=== PATIENT | female | born 1935 | race Caucasian/White ===

== ENCOUNTER 2019-06-15 05:09 | Inpatient (IN) ==
--- NOTE | 2019-06-15 05:22 | PROVIDER DOCUMENTATION ---
HPI-Musculoskeletal Pain/Inj - GENERAL Chief Complaint: Fall Stated Complaint: fall Time Seen by Provider: 06/15/19 05:14 Source: patient, EMS - HX OF PRESENT ILLNESS-MUSKULOSKELTAL Nature of Presenting Problem: patient is a 84 year old white female complaning of right hip pain after falling out of bed this am. Denies LOC, neck pain, or head injury. Quality of Pain: reports: aching Severity in ED: moderate Onset/Duration: abrupt Timing: still present Any recent injury?: No Locality of Occurance: Home Similar Symptoms Previously?: No - FALL INJURY Location of Pain/Injury: reports: lower extremity (right hip) Pain Radiation: reports: no radiation Symptoms prior to fall:: reports: none Loss of Consciousness: no loss of consciousness Injury Associated Symptoms: reports: denies symptoms - HIP/PELVIS PAIN/INJURY Hip Pain Location: reports: hip (R) Context / Method of Injury: reports: direct blow, fall - LOWER EXTREMITY PAIN/INJURY Lower Extremities Pain: hip: right Review of Systems - Adult - REVIEW OF SYSTEMS - ADULT Constitutional: denies: chills, fever Eyes: reports: no symptoms reported Ears, Nose, Mouth & Throat: reports: no symptoms reported Cardiovascular: reports: no symptoms reported Respiratory: reports: no symptoms reported Gastrointestinal: reports: no symptoms reported Genitourinary: reports: no symptoms reported Musculoskeletal: reports: see HPI. denies: back pain, neck pain Integumentary: reports: no symptoms reported Neurological: reports: no symptoms reported Psychiatric: reports: no symptoms reported Endocrine: reports: no symptoms reported Hematologic/Lymphatic: reports: no symptoms reported Allergic/Immunologic: reports: no symptoms reported All Other Systems: Reviewed and Negative Past History - Adult - PAST MEDICAL HISTORY-ADULT Review of Records: reports: Old Records Reviewed, Nursing Assessment Review, Medications Reviewed, Social history reviewed & non-contributory. Major Childhood Illnesses: reports: denies history Cardiovascular: reports: CAD, HTN, hyperlipidemia, NM Respiratory: reports: denies history Gastrointestinal: reports: denies history Obstetrical/Gynecological: reports: denies history Genitourinary: reports: denies history Musculoskeletal: reports: denies history Neurological: reports: CVA Endocrine/Immune: reports: Diabetes, denies history Other Conditions: reports: denies history - PRIOR SURGERIES/PROCEDURES Surgical/Procedure History: reports: hysterectomy, CABG - IMMUNIZATION STATUS Childhood Immunizations: See Nurse Assessment Flu Vaccine: See Nurse Assessment - FAMILY HISTORY Family History: reviewed, not pertinent Physical Exam-Injury Related - Physical Exam-Injury Related Initial Vital Signs Reviewed: Yes General Appearance: alert, no apparent distress, thin Eyes: other (clear) Head, Ears, Nose, Mouth & Throat: normocephalic/atraumatic, moist mucous membranes Neck: non-tender, full range of motion, supple Respiratory: chest non-tender, lungs clear Cardiovascular: regular rate, rhythm Abdominal Exam: normal bowel sounds, non tender, soft Lymphatic: no adenopathy Back Exam: normal inspection, no CVA tenderness Extremity: tenderness (tender over right posterior hip without deformities) Integumentary: normal color, warm/dry Neurologic: grossly normal - Glascow Coma Score Best Eye Response ([place]): (4) open spontaneously Best Verbal Response ([place]): (5) oriented Best Motor Response ([place]): (6) obeys commands [place] Total: 15 Progress - PLAN OF CARE/RESULTS Progress/Plan/Lab Results: Vital Signs - 8 hr 06/15/19 05:13 06/15/19 05:21 Temperature 98.0 F Pulse Rate 58 L Respiratory Rate 18 Blood Pressure 170/56 170/56 O2 Sat by Pulse Oximetry 95 93 L Orders Category Date Time Status Saline Loc DIRECTED Care 06/15/19 06:14 Active NPO Diet 06/15/19 06:[address] PELVIS W/O CONTRAST [CT] Stat Exams 06/15/19 05:17 Taken CBC WITH ELECTRONIC DIFF [HEME] Stat Lab 06/15/19 06:14 Uncollected COMPREHENSIVE METABOLIC PANEL [CHEM] Stat Lab 06/15/19 06:14 Uncollected PROTIME WITH INR [COAG] Stat Lab 06/15/19 06:15 Uncollected PTT [COAG] Stat Lab 06/15/19 06:15 Uncollected URINALYSIS W/POSS RFLX CULT [URINALYSIS] Stat Lab 06/15/19 06:14 Uncollected Ketorolac [Toradol] Med 06/15/19 06:11 Discontinued 30 mg IV NOW ONE EKG [EKG] Stat Ther 06/15/19 06:15 Ordered - CONSULTS/PCP/HOSPITALIST Notification #1 *Consult/PCP/Hospitalist*: Dr. Call Time Discussed: 06:15 Reason/Comments: admit to hospitalist Consult Disposition: Admit #2 Consult: Dr. Wagner Time Discussed: 06:20 Reason/Comments: admit to day shift hospitalist Consult Disposition: Admit Departure - Departure Date of Disposition Decision: 06/15/19 Time of Disposition Decision: 06:20 DIAGNOSIS: Closed comminuted intertrochanteric fracture of right femur Qualifiers: Encounter type: initial encounter Qualified Code(s): S72.141A - Displaced intertrochanteric fracture of right femur, initial encounter for closed fracture Disposition: ADMITTED INPATIENT 09 Certified Medical Emergency: Emergent Condition: Stable Referrals and Follow-Ups: Jordan Herrera MD [Primary Care Provider] - - Critical Care Note This patient required my direct & personal management of CC.: No Attestation - Physician/ NUHA Attestation Patient care was provided by Advanced Practice Provider:: No The physician spent face to face time with patient:: Yes Advanced Practice Provider documentation review:: Supervising physician onsite and consulted in the evaluation and care of this patient. The physician did have a face to face encounter with the patient.
[2019-06-15] MEDS ORDERED: TORADOL IV ONE (06:11)
[2019-06-15 07:10] LABS: URINE SOURCE CATH
[2019-06-15 07:21] LABS: BASO# 0.01 X1000 (0.0-0.2); BASO% 0.1 % (0.0-0.8); EOS# 0.04 X1000 (0.0-0.7); EOS% 0.5 % (0.0-10.0); HEMATOCRIT 33.4 % (37.0-47.0); HEMOGLOBIN 10.7 g/dL (12.0-16.0); IMM GRAN# 0.03 X1000 (0.0-0.04); IMM GRAN% 0.4 % (0.0-0.5); LYMPH# 1.38 X1000 (1.2-3.4); LYMPH% 18.5 % (20.5-51.1); MCH 30.7 PG (27-31); MCV 95.7 FL (81-99); MONO# 0.44 X1000 (0.11-0.59); MONO% 5.9 % (1.7-9.3); MPV 10.1 FL (7.4-10.4); NEUT# 5.57 X1000 (1.4-6.5); NEUT% 74.6 % (42.2-75.2); PLT 239 X1000 (130-400); RBC 3.49 XMIL (4.2-5.4); RDW 12.3 % (11.5-14.5); WBC 7.47 X1000 (4.8-10.8)
[2019-06-15 07:30] LABS: BILIRUBIN URINE NEGATIVE (NEGATIVE); BLOOD URINE NEGATIVE (NEGATIVE); COLOR YELLOW; GLUCOSE URINE NEGATIVE (NEGATIVE); KETONE URINE NEGATIVE (NEGATIVE); LEUKOCYTES URINE NEGATIVE (NEGATIVE); NITRITE URINE NEGATIVE (NEGATIVE); PROTEIN URINE NEGATIVE (NEGATIVE); SP GRAVITY URINE 1.013; TURBIDITY URINE CLEAR (CLEAR); UROBILINOGEN URINE NORMAL (NORMAL)
[2019-06-15 07:31] LABS: UR EPITHELIAL CELLS <10 /HPF (<10); URINE BACTERIA NEGATIVE /HPF; URINE RBC <10 /HPF (<10); URINE WBC <10 /HPF (<10)
[2019-06-15 07:38] LABS: ALB/GLOB RATIO 1.5; ALBUMIN 3.8 g/dL (3.5-5.0); CALCIUM 9.3 mg/dL (8.8-10.2); POTASSIUM 5.3 mmol/L (3.5-5.1); TOTAL BILIRUBIN 0.2 mg/dL (0.20-1.00); TOTAL PROTEIN 6.4 g/dL (6.3-8.3)
[2019-06-15 08:31] LABS: INR 0.97
[2019-06-15 08:42] LABS: PTT 26.5 Seconds (22.3-41.8)
[2019-06-15] MEDS ORDERED: ZOFRAN IV PRN (08:47)
[2019-06-15] MEDS ORDERED: TYLENOL PO PRN (08:47)
[2019-06-15] MEDS: NS 1,000 ML IV SCH (09:20)
--- NOTE | 2019-06-15 09:37 | Diag Imaging Result Doc PS360 ---
EXAM: CT PELVIS W/O CONTRAST INDICATION: fall TECHNIQUE: This exam was performed using automated exposure control, adjustment of mA or kV according to patient size, and/or use of iterative reconstruction technique. COMPARISON: None. FINDINGS: The bones are osteopenic. There is an acute intertrochanteric fracture of the right hip with mild comminution. The lesser trochanter is avulsed and minimally displaced. There is moderate anterior apex angulation at the site of the intertrochanteric fracture. There is no hip dislocation. There are degenerative changes at both hips. There are degenerative changes at the lower lumbar spine. No other fractures are identified involving the pelvis, sacrum, or left hip. There is soft tissue edema around the right hip fracture. There is atherosclerotic calcification. Surrounding soft tissues are essentially unremarkable, otherwise. IMPRESSION: Intertrochanteric fracture of the right hip as detailed above. Electronically signed by Ezequiel Rose 06/15/2019 9:35 AM
[2019-06-15] MEDS: DEMEROL IV PRN ×2 (10:53→18:15)
--- NOTE | 2019-06-15 12:38 | Diag Imaging Result Doc PS360 ---
EXAM: XRAY HIP UNILATERAL RT INDICATION: hip fx TECHNIQUE: 2 views COMPARISON: CT pelvis dated 06/15/2019 FINDINGS: There is a known comminuted intertrochanteric right hip fracture. It appears to be unchanged as compared to the recent prior CT. No other fracture or dislocation is identified. By plain radiograph, surrounding soft tissues are essentially unremarkable. IMPRESSION: Intertrochanteric fracture of the right hip that appears grossly unchanged as compared to the recent CT. Electronically signed by Ezequiel Rose 06/15/2019 12:36 PM
--- NOTE | 2019-06-15 15:18 | HISTORY AND PHYSICAL ---
PRIMARY CARE PHYSICIAN: Dr. Jordan Herrera. CHIEF COMPLAINT: Fall with right hip pain. HISTORY OF PRESENTING ILLNESS: This is an 84-year-old female who presents to [facility] after she sustained a fall while trying to get back into her bed and complained of right hip pain. According to the daughter, the patient had gotten up out of the bed to go to the bathroom, came back, went to sit down on her bed and did not sit far enough back and missed the bed and sat in the floor and then began having right hip pain. Her CT of the pelvis per ER documentation showed a closed comminuted intertrochanteric fracture of the right femur. So she will be admitted for further evaluation and treatment. PAST MEDICAL HISTORY: Dementia, coronary artery disease, hypertension, hyperlipidemia, VA, CVA, and diabetes type 2. PAST SURGICAL HISTORY: A hysterectomy, a CABG, a right ankle fracture. FAMILY HISTORY: Reviewed and noncontributory. SOCIAL HISTORY: She lives at home with sitters. Denies any tobacco, alcohol, or illicit drug use. ALLERGIES: Morphine. HOME MEDICATIONS: Will all be held at this time due to being n.p.o. but she takes aspirin 325 mg p.o. daily, Aricept 5 mg p.o. daily, gabapentin 100 mg p.o. b.i.d., and Glucophage XR 1000 mg p.o. b.i.d. LABORATORY DATA: Showed a white blood cell count of 7.47, hemoglobin 10.7, hematocrit 33.4, platelets 239. Sodium 134, potassium 5.3, chloride 97, CO2 22, BUN of 18, creatinine 1, glucose 142. Urinalysis was negative. Pelvic CT per ER physician documentation showed closed comminuted intertrochanteric fracture of the right femur; awaiting radiology read. REVIEW OF SYSTEMS: She denied any fever, chills, blurred vision, dizziness, chest pain, coughing, shortness of breath. She denied any abdominal pain, constipation, diarrhea, burning or hurting with urination. Does have some pain with movement to her right hip. PHYSICAL EXAMINATION: VITAL SIGNS: On arrival she had a temperature of 98 degrees, pulse 58, respirations 18, blood pressure 170/56, saturating 95% on room air. GENERAL: This is an 84-year-old female who is lying in the bed, unable to answer all questions appropriately due to her dementia, but daughter is at bedside to give information and history, along with ER record review. HENT: Normocephalic, atraumatic. Normal ENT inspection. Oropharynx and nares are clear. EYES: Pupils are equal, round, reactive to light and accommodation. Extraocular movements are intact. NECK: Normal inspection. Normal range of motion. LUNGS: Clear to auscultation bilaterally with equal lung expansion and chest wall movement. HEART: With regular rate and rhythm. No murmurs, rubs, or gallops. ABDOMEN: Soft, nontender, nondistended. Bowel sounds are present x4 quadrants. MUSCULOSKELETAL: She had 5/5 strength to bilateral upper extremities, 4/5 strength to her left lower extremity, and unable to assess the right lower extremity due to her hip fracture. ASSESSMENT: 1. Fall. 2. A right intertrochanteric femur fracture. 3. Dementia, history of. 4. Diabetes type 2. PLAN: She is being admitted to the surgical unit, placed on telemetry, n.p.o., consult Orthopedics. We will apply SCDs for DVT prophylaxis, indwelling Franklin catheter. We are going to check an EKG, PT with INR, PTT. Place her on normal saline at 75 mL an hour, Zofran 4 mg IV q.4 hours p.r.n., Demerol 25 mg IV q.4 hours p.r.n. Further orders after seen by attending and by mainframe consultant. We will recheck a CBC and BMP in the a.m. Dictated by BHUPINDER Haley for Forest Alarcon MD cc: BHUPINDER Haley MD Jeb S. Hornsby, MD
--- NOTE | 2019-06-15 19:29 | ORTHOPAEDICS CONSULTATION ---
DATE: 06/15/2019 CHIEF COMPLAINT: I broke my right hip. HISTORY OF PRESENT ILLNESS: An 84-year-old female status post a fall at home injuring her right hip. She was seen in the emergency room, admitted to the hospitalist service with a right intertrochanteric hip fracture. She has some senile dementia. Her daughters in attendance. She is a household ambulator at best. She complains of pain and tenderness over the right hip. She denies any other complaints. PAST MEDICAL HISTORY: Significant for senile dementia, coronary disease, hypertension, hyperlipidemia. Orthopedically she has had a broken left ankle and broken wrist in the past, which have not been surgical and been casted. We have seen her in the office before. FAMILY HISTORY: Noncontributory. PHYSICAL EXAM: Examination reveals the upper extremities and the right lower extremity to be atraumatic and nontender. Left lower extremity is slightly shortened and externally rotated with tenderness about the left hip on passive motion. There is no open wounds. She has good capillary refill distally. Compartments are all soft. X-rays reviewed at the current time include a CT scan which shows intertrochanteric right hip fracture. Examination reveals the right lower extremity to be shortened, externally rotated. There is no open wounds. Compartments are soft. There is good capillary refill. There is no obvious motor or sensory deficits. She has tenderness on passive motion about the right hip. She is nontender over the left lower extremity and the upper extremities. Spine and skull are nontender. X-rays reviewed include a CT scan of the pelvis, which shows a right intertrochanteric hip fracture. ASSESSMENT: Right intertrochanteric hip fracture. PLAN: We will plan on surgical stabilization of the hip fracture in the morning. We will need to get regular x-rays just for better definition of the fracture fragments for plain imaging. Risks, benefits including risk of loss of life or limb, damage to tendon, nerve, or blood vessel, failure of the fracture to heal, and other imponderables were discussed with the daughter and she is willing to proceed. cc: Ezequiel Call MD
--- NOTE | 2019-06-15 23:43 | HISTORY AND PHYSICAL ---
ADDENDUM: This is a H P addendum with BHUPINDER Haley. This is an 84-year-old, severely demented lady who fell and fractured her right femur between the trochanters. She has a displaced fracture. When I saw her, she had no idea what I was talking, that she fell, that she broke anything which is okay. She was in Roca's traction. We admitted her for treatment and anticipate treatment. Reportedly has a history of type 2 diabetes, but she is on some medications. This is a [id number] encounter note with Katina Lal. cc: Forest Alarcon MD
[2019-06-16] MEDS: DEMEROL IV PRN (00:04)
[2019-06-16] MEDS: NS 1,000 ML IV SCH ×2 (00:05→11:38)
[2019-06-16] MEDS ORDERED: KEFZOL 1 GM/D5W 1 GM/50 ML IVPB ONE (06:50)
[2019-06-16 07:21] LABS: BASO# 0.01 X1000 (0.0-0.2); BASO% 0.2 % (0.0-0.8); EOS# 0.02 X1000 (0.0-0.7); EOS% 0.3 % (0.0-10.0); HEMOGLOBIN 10.1 g/dL (12.0-16.0); IMM GRAN# 0.02 X1000 (0.0-0.04); IMM GRAN% 0.3 % (0.0-0.5); LYMPH# 0.97 X1000 (1.2-3.4); LYMPH% 16.2 % (20.5-51.1); MCH 31.4 PG (27-31); MCHC 32.6 g/dL (33-37); MCV 96.3 FL (81-99); MONO# 0.51 X1000 (0.11-0.59); MONO% 8.5 % (1.7-9.3); MPV 9.9 FL (7.4-10.4); NEUT# 4.44 X1000 (1.4-6.5); NEUT% 74.5 % (42.2-75.2); PLT 225 X1000 (130-400); RBC 3.22 XMIL (4.2-5.4); WBC 5.97 X1000 (4.8-10.8)
[2019-06-16] MEDS ORDERED: FENTANYL ONE ×2 (07:30→08:12)
[2019-06-16] MEDS ORDERED: XYLOCAINE-MPF 2% ONE ×2 (07:30→08:54)
[2019-06-16] MEDS ORDERED: ROBINUL ONE ×2 (07:30→08:54)
[2019-06-16] MEDS ORDERED: SODIUM CHLORIDE 0.9% 10 ML ONE ×2 (07:30→08:54)
[2019-06-16] MEDS ORDERED: DIPRIVAN 1% ONE (07:30)
[2019-06-16] MEDS ORDERED: NEO-SYNEPHRINE ONE (07:30)
[2019-06-16] MEDS ORDERED: KEFZOL 1 GM/D5W 1 GM/50 ML IVPB IV ONE (07:36)
[2019-06-16] MEDS: HUMULIN R SUBQ SCH ×4 (07:37→23:29)
[2019-06-16 07:50] LABS: AGAP 14; BUN 14 mg/dL (8-22); CALCIUM 8.9 mg/dL (8.8-10.2); CHLORIDE 98 mmol/L (98-107); COSMO 270; CREATININE 0.8 mg/dL (0.5-0.9); ESTIMATED GFR > 60; GLUCOSE 185 mg/dL (70-104); POTASSIUM 4.1 mmol/L (3.5-5.1); SODIUM 132 mmol/L (136-145); TCO2 20 mmol/L (25-35)
[2019-06-16] MEDS ORDERED: MILK OF MAGNESIA PO PRN (09:32)
[2019-06-16] MEDS ORDERED: ZOFRAN IV PRN (09:32)
[2019-06-16] MEDS ORDERED: HALDOL IV PRN (09:45)
[2019-06-16] MEDS: ARICEPT PO SCH (11:19)
[2019-06-16] MEDS: NEURONTIN PO SCH ×2 (11:19→23:24)
[2019-06-16] MEDS: ASPIRIN PO SCH (11:19)
[2019-06-16] MEDS: TYLENOL PO SCH ×2 (11:27→18:38)
--- NOTE | 2019-06-16 12:43 | OPERATIVE NOTE ---
PROCEDURE DATE: 06/16/2019 PREOPERATIVE DIAGNOSIS: Right intertrochanteric hip fracture. POSTOPERATIVE DIAGNOSIS: Right intertrochanteric hip fracture. PROCEDURE: Trochanteric fixation nail, right intertrochanteric hip. SURGEON: Sun Call M.D. ANESTHESIA: Spinal. COMPLICATIONS: None. PROCEDURE IN DETAIL: An 84-year-old female presents for surgical fixation of a right hip fracture. Risks, benefits, and no guarantees were discussed, and she is willing to proceed. She was taken to the operating room, and satisfactory spinal anesthesia obtained. She was transferred to the [place] table in gentle longitudinal traction, and neutral rotation utilized to reduce the hip near anatomically. The hip was prepped and draped in the usual sterile fashion. A time-out was taken to confirm operative site, procedure, and patient. Afterwards, a 1-inch incision was made proximal to the greater trochanter, and TFN guide pin advanced through the tip of the trochanter, and down the intramedullary canal. This was reamed with an entry reamer, and exchanged for a ball- tip guidewire. A 360 length nail was measured, and a 12 mm reamer reamed over the guidewire to accommodate an 11 mm diameter nail. The nail was assembled to the insertion guide, and inserted over the guidewire and fully seated. The guidewire was removed. A small incision was made just distal to the lesser trochanter along the lateral thigh, and the helical blade guide pin advanced down to bone. A guide pin was placed using the provided guide, across the nail, and into the central aspect of the femoral head under multiplanar image guidance. A 105 length helical blade was inserted over the guidewire with secure proximal fixation. The anti-rotation screw was set, and the guide pin and proximal guides removed on the proximal end of the nail. Attention was drawn towards making sure leg lengths and rotation were correct at this point. The distal screw was placed in the middle of the dynamic slot under multiplanar image guidance through a small lateral incision above the knee. A 42 length screw was placed across the nail with bicortical fixation. C-arm was used to confirm this. The wounds were irrigated and closed in layers with 2- 0 Vicryl and skin reji. Sterile dressings were applied. She was recovered from anesthesia, and transferred to the recovery room in stable condition. No intraoperative complications were noted. Instrument count and sponge count were correct at the time of closure of the case. cc: Ezequiel Call MD
[2019-06-16] MEDS: OXY IR PO PRN (13:21)
--- NOTE | 2019-06-16 14:28 | EKG Report ---
Test Performed on : 06/15/2019 07:51:06 AM Test Reason : pain Blood Pressure : / mmHG Vent. Rate : 060 BPM Atrial Rate : 060 BPM P-R Int : 160 ms QRS Dur : 080 ms QT Int : 406 ms P-R-T Axes : 071 014 087 degrees QTc Int : 406 ms Normal sinus rhythm. Nonspecific T wave abnormality Abnormal ECG When compared with ECG of 05-JUN-2018 08:06, aberrant conduction. is no longer present Criteria for Inferior infarct are no longer present Unconfirmed Result
[2019-06-16] MEDS: KEFZOL 1 GM/D5W 1 GM/50 ML IVPB IV SCH (17:15)
--- NOTE | 2019-06-16 18:39 | PROGRESS NOTE ---
DATE: 06/16/2019 SUBJECTIVE: She is resting comfortably. Apparently, she did not tolerate the Demerol at all. It made her much more confused. OBJECTIVE: Blood pressure 121/50, heart rate of 89, respiratory rate of 20, temperature 98.3 degrees, 94% on room air.Cardiovascular: Regular rate and rhythm. Pulmonary: Bilateral breath sounds, clear to auscultation. GI: Soft, nontender, nondistended. Bowel sounds are positive. LABORATORY DATA: White count 5, hemoglobin and hematocrit 10 and 31, platelets 225,000. Sodium 132. PROBLEM LIST: 1. Right hip fracture. She is getting treatment for hip fracture. She is status post surgery today and she did okay. In any case, the patient will be admitted. We are looking at rehab options. 2. Type 2 diabetes. Blood sugars are stable. We will continue to monitor. 3. Dementia. We will continue her regular medications and follow. cc: Forest Alarcon MD
[2019-06-16] MEDS: PERIDEX MT SCH (23:24)
[2019-06-16] MEDS: COLACE PO SCH (23:24)
[2019-06-16] MEDS: MELATONIN PO SCH (23:24)
[2019-06-17] MEDS: KEFZOL 1 GM/D5W 1 GM/50 ML IVPB IV SCH ×2 (00:44→10:46)
[2019-06-17] MEDS: TYLENOL PO SCH ×4 (03:01→17:21)
[2019-06-17] MEDS: NS 1,000 ML IV SCH (05:24)
[2019-06-17] MEDS: LOVENOX SUBQ SCH (05:25)
[2019-06-17] MEDS: HUMULIN R SUBQ SCH ×4 (06:49→20:51)
[2019-06-17 07:00] LABS: HEMATOCRIT 27.3 % (37.0-47.0); HEMOGLOBIN 8.9 g/dL (12.0-16.0)
--- NOTE | 2019-06-17 07:55 | Diag Imaging Result Doc PS360 ---
EXAM: CHEST-1 VIEW 06/17/2019 HISTORY: rehab TECHNIQUE: AP portable at 0745 COMMENT: The inspiration is better than on 06/05/2018. Considering differences in positioning and technique are has been no significant change. IMPRESSION: Stable chest. Electronically signed by Jose Luis Rosas 06/17/2019 7:52 AM
[2019-06-17 08:07] LABS: CALCIUM 8.6 mg/dL (8.8-10.2); CREATININE 0.9 mg/dL (0.5-0.9); POTASSIUM 4.2 mmol/L (3.5-5.1)
[2019-06-17] MEDS: ASPIRIN PO SCH (10:46)
[2019-06-17] MEDS: FERROUS SULFATE PO SCH (10:46)
[2019-06-17] MEDS: PERIDEX MT SCH ×2 (10:46→20:44)
[2019-06-17] MEDS: NEURONTIN PO SCH ×2 (10:46→20:44)
[2019-06-17] MEDS: ARICEPT PO SCH (10:46)
[2019-06-17] MEDS ORDERED: GLUCOPHAGE PO ONE (16:54)
[2019-06-17] MEDS: MELATONIN PO SCH (20:43)
[2019-06-17] MEDS: OXY IR PO PRN (20:43)
[2019-06-17] MEDS: COLACE PO SCH (20:44)
[2019-06-18] MEDS: TYLENOL PO SCH ×3 (06:21→16:44)
[2019-06-18] MEDS: OXY IR PO PRN (06:23)
[2019-06-18 06:48] LABS: HEMATOCRIT 23.7 % (37.0-47.0); HEMOGLOBIN 7.8 g/dL (12.0-16.0)
[2019-06-18] MEDS: LOVENOX SUBQ SCH (06:50)
[2019-06-18 07:07] LABS: AGAP 14; BUN 15 mg/dL (8-22); CALCIUM 8.6 mg/dL (8.8-10.2); CHLORIDE 100 mmol/L (98-107); COSMO 277; CREATININE 0.8 mg/dL (0.5-0.9); ESTIMATED GFR > 60; GLUCOSE 172 mg/dL (70-104); POTASSIUM 3.5 mmol/L (3.5-5.1); SODIUM 136 mmol/L (136-145); TCO2 22 mmol/L (25-35)
[2019-06-18] MEDS: HUMULIN R SUBQ SCH ×4 (07:26→22:06)
--- NOTE | 2019-06-18 08:03 | PROGRESS NOTE ---
DATE: 06/17/2019 SUBJECTIVE: Patient has no complaints. She is very demented. Does not realize what is going on. OBJECTIVE: Blood pressure 164/60, heart rate 98, respiratory rate of 20, temperature 97.8 degrees. Cardiovascular: Regular rate and rhythm. Pulmonary: Bilateral breath sounds clear to auscultation. GI: Soft, nontender, nondistended. Bowel sounds: positive. Extremity Examination: No clubbing or cyanosis. Lymphatic Examination: No peripheral edema. Laboratory Data: White count is stable hemoglobin and hematocrit 8 and 27. Basic was normal. PROBLEM LIST: 1. Right hip fracture, status post open reduction and internal fixation, postoperative day 1. She is going to continue pain control. Orthopedics is following. Continue to monitor. 2. Diabetes, stable currently. 3. Dementia. She has no major issues. 4. Hypokalemia. We will supplement and follow. DISPOSITION: Pending her clinical status. cc: Forest Alarcon MD MTDD
--- NOTE | 2019-06-18 09:53 | DISCHARGE SUMMARY ---
ADMISSION DATE: 06/15/2019 DISCHARGE DATE: 06/18/2019 ictating a discharge summary on Dian Cabello this is for Dr. Dane Camacho date of admission 06/15/2019 date of discharge 06/18/2019. DIAGNOSES: 1. Right hip fracture status post open reduction and internal fixation. 2. Diabetes mellitus type 2. 3. Dementia. CONSULTANTS: Dr. Call, Orthopedics. DIAGNOSTICS: 1. CT of the pelvis revealed intertrochanteric fracture of the right hip. 2. Right hip x-ray, intertrochanteric fracture of the right hip that appears grossly unchanged compared to CT. 3. On 06/17/2019 chest x-ray reveals a stable chest. PROCEDURES: On 06/16/2019 trochanteric fixation nail, right intertrochanteric hip. HOSPITAL COURSE: Ms. Cabello presented to the emergency room with right hip pain after falling trying to get out of her bed. She was found to have a right intertrochanteric femur hip fracture for which she underwent nailing on 06/16/2019. She has done well. Pain has been controlled. She was evaluated by Physical Therapy on 06/17/2019 and thankfully today she is ready to be discharged to rehab. DISCHARGE VITAL SIGNS: Blood pressure is 147/49, with a heart rate of 87, respirations 20, temperature is 98.4 degrees, with room air saturations 96%-100%. DISCHARGE PHYSICAL EXAMINATION: Cardiovascular: Regular rate and rhythm. S1 and S2 appreciated Pulmonary: Breath sounds are clear. No increased work of breathing noted. Gastrointestinal: Abdomen is soft, nontender and nondistended with bowel sounds in all 4 quadrants. DISCHARGE MEDICATIONS: 1. Metformin 1000 mg p.o. b.i.d. 2. Aspirin 325 mg p.o. daily. 3. Aricept 5 mg p.o. daily. 4. Neurontin 100 mg p.o. b.i.d. 5. Colace 200 mg p.o. at bedtime. 6. Ferrous sulfate 325 p.o. daily. 7. Melatonin 5 mg p.o. at bedtime. DISPOSITION: She is being discharged to rehab in stable condition with family members present. TIME SPENT: This is a greater than 30 minute discharge. Dictated by BHUPINDER Turpin for Forest Alarcon MD cc: BHUPINDER Turpin MD [facility]
[2019-06-18] MEDS: NS 1,000 ML IV SCH (10:01)
[2019-06-18] MEDS: PERIDEX MT SCH ×2 (10:32→22:16)
[2019-06-18] MEDS: GLUCOPHAGE PO SCH ×2 (10:32→16:44)
[2019-06-18] MEDS: NEURONTIN PO SCH ×2 (10:32→22:16)
[2019-06-18] MEDS: ARICEPT PO SCH (10:32)
[2019-06-18] MEDS: ASPIRIN PO SCH (10:32)
[2019-06-18] MEDS: FERROUS SULFATE PO SCH (10:32)
--- NOTE | 2019-06-18 10:56 | DISCHARGE SUMMARY ---
ADMISSION DATE: 06/15/2019 DISCHARGE DATE: DISCHARGE DIAGNOSIS: Right hip fracture. SUMMARY: The patient is doing well. She is sitting up in bed. Seems to be doing okay, pleasantly confused. No major issues. Please see discharge summary for complete data. I will also add Oxy IR for pain control in addition to her other discharge home medications. The patient is stable for discharge. TIME SPENT: 35 minute discharge time. [id number] encounter note with Debi Swain. cc: Forest Alarcon MD
[2019-06-18] MEDS ORDERED: NS 500 ML IV ONE (11:42)
[2019-06-18 12:52] LABS: AGAP 15; BUN 16 mg/dL (8-22); CALCIUM 8.4 mg/dL (8.8-10.2); CHLORIDE 97 mmol/L (98-107); COSMO 272; CREATININE 0.8 mg/dL (0.5-0.9); ESTIMATED GFR > 60; GLUCOSE 203 mg/dL (70-104); POTASSIUM 3.7 mmol/L (3.5-5.1); SODIUM 132 mmol/L (136-145); TCO2 20 mmol/L (25-35)
--- NOTE | 2019-06-18 13:00 | EKG Report ---
Test Performed on : 06/18/2019 12:26:53 PM Test Reason : sy ncope Blood Pressure : / mmHG Vent. Rate : 092 BPM Atrial Rate : 092 BPM P-R Int : 158 ms QRS Dur : 084 ms QT Int : 394 ms P-R-T Axes : 060 001 023 degrees QTc Int : 487 ms Normal sinus rhythm. Normal ECG When compared with ECG of 15-JUN-2019 07:51, (Unconfirmed) Vent. rate has increased BY 32 BPM QT has lengthened Confirmed by Jimbo CAMERON, P.J.M ([id number]) on 06/19/2019 3:10:44 PM
--- NOTE | 2019-06-18 13:16 | Diag Imaging Result Doc PS360 ---
EXAM: CT HEAD W/O CONTRAST INDICATION: encephalopathy TECHNIQUE: This exam was performed using automated exposure control, adjustment of mA or kV according to patient size, and/or use of iterative reconstruction technique. COMPARISON: 12/16/2018 FINDINGS: There is stable diffuse brain atrophy. There is stable moderate white matter microangiopathy. There is a stable chronic lacunar infarct involving the left basal ganglion. There are a couple of foci of low attenuation at the lower midbrain/upper loaf to the right of midline that I cannot identify on the previous study. These likely represent lacunar infarcts that have occurred during the interval. Although they could be chronic, late acute or subacute infarcts cannot completely be excluded. There is no other definite acute infarct given the limited sensitivity of CT versus MRI. There is no discrete intracranial mass, mass effect, or intracranial hemorrhage. The surrounding soft tissues and bony structures are essentially unremarkable. IMPRESSION: A couple of new foci of low attenuation in the range stem of the right midline as described indicating lacunar infarcts. Although the could be chronic, late acute or subacute lacunar infarct cannot completely be excluded. Otherwise, the brain is stable. Electronically signed by Ezequiel Rose 06/18/2019 1:14 PM
--- NOTE | 2019-06-18 15:03 | PROGRESS NOTE ---
DATE: 06/18/2019 SUBJECTIVE: Patient is doing well. She has no major complaints. She is sitting up in bed. However, after I had assessed her, she sat up in bed and passed out. That was around 11. OBJECTIVE: Vital signs: Blood pressure 181/70, heart rate 78, respiratory rate 20, temperature 97.5 degrees, 100% on room air. Her vital signs were stable. If anything, she was a bit hypertensive. Cardiovascular: Regular rate and rhythm. Pulmonary: Bilateral breath sounds. Diminished at the bases. GI: Soft, nontender, nondistended. Bowel sounds positive. Her sugar was around 168. LABORATORY DATA: Her hemoglobin and hematocrit have dropped to 7.8 and 23.7, which is not unusual for postop hip replacement. Her initial hemoglobin and hematocrit were 10 and 33, so she has dropped her hematocrit 10 points and her hemoglobin about 3 g. There is no gross evidence of bleeding, but I am suspicious that the patient is syncopal because of anemia. PROBLEM LIST: Symptomatic anemia. We will transfuse 1 unit and then repeat her hemoglobin and hematocrit and follow. I have ordered an EKG, head CT, cardiac enzymes, and follow closely. We will cancel dictate discharge for today, but I think if things are stable tomorrow and workup is negative, anticipate discharge tomorrow. cc: Forest Alarcon MD
--- NOTE | 2019-06-18 21:02 | ORTHOPAEDICS PROGRESS NOTE ---
DATE: 06/18/2019 SUBJECTIVE DATA: Ms. Cabello is seen postop for right intertrochanteric hip fracture pinning. She reports she has had some dizziness earlier in the day and that now they are transfusing her 1 unit of blood. She states she feels somewhat tired and will not take a nap at this time. OBJECTIVE DATA: There is good sensation in the right lower extremity. There are good pedal pulses. There is good capillary refill in the toes. Her bandages are clean and dry at this time. Current hemoglobin and hematocrit are 7.8 and hematocrit 23.7. ASSESSMENT: 1. Right intertrochanteric hip fracture with pinning. 2. Anemia. PLAN: We still plan on hopefully getting Ms. Cabello out tomorrow to be discharged. She can follow up with us in clinic in roughly 3 to 4 weeks for some x-rays on her hip. We will check back on her later if needed. Dictated by BHUPINDER Saavedra for Ezequiel Call MD cc: BHUPINDER Saavedra MD
[2019-06-18] MEDS: COLACE PO SCH (21:56)
[2019-06-18] MEDS: MELATONIN PO SCH (21:56)
[2019-06-19] MEDS: TYLENOL PO SCH ×3 (03:15→16:50)
[2019-06-19] MEDS: HUMULIN R SUBQ SCH ×4 (07:02→21:00)
[2019-06-19 07:25] LABS: HEMATOCRIT 26.4 % (37.0-47.0); HEMOGLOBIN 8.7 g/dL (12.0-16.0)
[2019-06-19 07:37] LABS: AGAP 12; BUN 17 mg/dL (8-22); CALCIUM 8.6 mg/dL (8.8-10.2); CHLORIDE 102 mmol/L (98-107); COSMO 277; CREATININE 0.8 mg/dL (0.5-0.9); ESTIMATED GFR > 60; GLUCOSE 123 mg/dL (70-104); POTASSIUM 3.7 mmol/L (3.5-5.1); SODIUM 137 mmol/L (136-145); TCO2 23 mmol/L (25-35)
[2019-06-19] MEDS: ARICEPT PO SCH (10:31)
[2019-06-19] MEDS: PERIDEX MT SCH (10:31)
[2019-06-19] MEDS: GLUCOPHAGE PO SCH ×2 (10:31→16:50)
[2019-06-19] MEDS: ASPIRIN EC PO SCH (10:31)
[2019-06-19] MEDS: FERROUS SULFATE PO SCH (10:31)
[2019-06-19] MEDS: NEURONTIN PO SCH ×2 (10:36→19:54)
[2019-06-19] MEDS: NORVASC PO SCH ×2 (14:34→19:55)
--- NOTE | 2019-06-19 15:27 | PROGRESS NOTE ---
DATE: 06/19/2019 SUBJECTIVE: Patient is lying in bed. She is alert and disoriented in time, but not in person or place. OBJECTIVE: Vital Signs: Temperature 98.1 degrees, heart rate 76, respiratory rate 18, blood pressure 187/50, and O2 saturation 96% on room air. General: On examination, this is an 84-year- old female lying in bed, in no acute distress. Cardiovascular: On exam, S1 and S2 heard. No murmurs, gallops, or rubs. Regular rate and rhythm. Respiratory: Clear bilaterally to auscultation. No work of breathing or using accessory muscles. Abdomen: Soft, nontender to palpation. Bowel sounds present. No organomegaly. Extremities: No clubbing, cyanosis, or edema. Peripheral pulses present in both legs. Neurological: Patient is oriented to person and place, not to time. LABORATORY DATA: Reviewed. ASSESSMENT AND PLAN: 1. Symptomatic anemia. The patient has received 1 unit of blood and since then hemoglobin is 8.7 today. She is more alert according to family who is at bedside. 2. Right intertrochanteric hip fracture, status post surgical pinning. Orthopedics is okay to let this patient go to rehabilitation. 3. Encephalopathy. We suspect that this anemia has contributed, but also a CT of the head showed a couple of spots on the right midline indicating lacunar infarct, but could be acute or chronic. In any case, the patient is definitely more oriented so we will continue monitoring this patient closely. Because of that, the family is very concerned. They request to keep this patient for at least 1 more day and see how she does. 4. Disposition: I think we will plan to observe this patient today, and tomorrow if she is feeling fine we can let her go. cc: Harvey Mukherjee MD MTDD
[2019-06-19] MEDS: OXY IR PO PRN (19:54)
[2019-06-19] MEDS: COLACE PO SCH (19:54)
[2019-06-19] MEDS: PRINIVIL PO SCH (19:55)
[2019-06-19] MEDS: MELATONIN PO SCH (20:00)
[2019-06-20] MEDS: COLACE PO SCH ×2 (00:25→20:37)
[2019-06-20] MEDS: TYLENOL PO SCH ×5 (00:30→20:37)
[2019-06-20] MEDS: OXY IR PO PRN (02:57)
[2019-06-20] MEDS: HUMULIN R SUBQ SCH ×4 (07:00→20:32)
[2019-06-20] MEDS: NEURONTIN PO SCH ×3 (08:09→20:30)
[2019-06-20] MEDS: PRINIVIL PO SCH ×2 (08:09→20:37)
[2019-06-20] MEDS: NORVASC PO SCH ×3 (08:11→20:37)
[2019-06-20 09:16] LABS: BASO# 0.01 X1000 (0.0-0.2); BASO% 0.1 % (0.0-0.8); EOS# 0.02 X1000 (0.0-0.7); EOS% 0.3 % (0.0-10.0); HEMOGLOBIN 9.5 g/dL (12.0-16.0); IMM GRAN# 0.02 X1000 (0.0-0.04); IMM GRAN% 0.3 % (0.0-0.5); LYMPH# 0.81 X1000 (1.2-3.4); LYMPH% 12.1 % (20.5-51.1); MCH 29.1 PG (27-31); MCHC 32.8 g/dL (33-37); MONO# 0.52 X1000 (0.11-0.59); MONO% 7.8 % (1.7-9.3); MPV 9.4 FL (7.4-10.4); NEUT% 79.4 % (42.2-75.2); PLT 319 X1000 (130-400); RBC 3.26 XMIL (4.2-5.4); RDW 15.6 % (11.5-14.5); WBC 6.68 X1000 (4.8-10.8)
[2019-06-20] MEDS: ASPIRIN EC PO SCH (09:52)
[2019-06-20] MEDS: GLUCOPHAGE PO SCH ×2 (09:52→18:42)
[2019-06-20] MEDS: ARICEPT PO SCH (09:52)
[2019-06-20] MEDS: FERROUS SULFATE PO SCH (09:53)
[2019-06-20 09:58] LABS: AGAP 13; ALBUMIN 3.5 g/dL (3.5-5.0); BUN 17 mg/dL (8-22); CALCIUM 9.2 mg/dL (8.8-10.2); CHLORIDE 97 mmol/L (98-107); COSMO 280; CREATININE 0.8 mg/dL (0.5-0.9); ESTIMATED GFR > 60; GLUCOSE 282 mg/dL (70-104); PHOSPHORUS 2.1 mg/dL (2.7-4.5); POTASSIUM 3.8 mmol/L (3.5-5.1); SODIUM 134 mmol/L (136-145); TCO2 24 mmol/L (25-35)
[2019-06-20] MEDS ORDERED: SODIUM PHOSPHATE 35 MMOL in NS 250 ML IV ONE (10:16)
--- NOTE | 2019-06-20 11:42 | PROGRESS NOTE ---
DATE: 06/20/2019 SUBJECTIVE: The patient is somehow confused, disoriented, but reports no complaints at this time. OBJECTIVE: Vital Signs: Temperature 97.7 degrees, heart rate 104, respiratory rate 22, blood pressure 162/78, O2 saturation 98% on room air. General: This is an 84-year-old female, lying in bed in no acute distress. Cardiovascular: S1, S2 heard. No murmurs, gallops, or rubs. Regular rate and rhythm. Respiratory: Clear bilaterally to auscultation. No work of breathing or using accessory muscles. Abdomen: Soft, nontender to palpation. Bowel sounds present. No organomegaly. Extremities: No clubbing, cyanosis, or edema. Peripheral pulses present in both legs. Neurological: The patient is oriented to person. Hard of hearing. Not oriented to place or time. LABORATORY DATA: Hemoglobin is 9.5 today. ASSESSMENT AND PLAN: 1. Symptomatic anemia. After the patient received 1 unit of blood, hemoglobin continues to improve. Today, it is 9.5. Will continue to monitor. 2. Right intertrochanteric hip fracture, status post surgical pinning. Orthopedics has cleared this patient for discharge 2 days ago. 3. Encephalopathy. The patient continues to be confused at times. CT showed possible acute versus subacute lacunar strokes. The patient continues to be on aspirin. Will continue to monitor. 4. Physical deconditioning. The patient is very weak, and on top of this right hip fracture, she is weaker, so that is why this patient is going to rehab facility. 5. Disposition. As I mentioned before, I think the patient should be good to go tomorrow to rehab facility. cc: Harvey Mukherjee MD
[2019-06-20] MEDS: MELATONIN PO SCH (20:37)
[2019-06-21] MEDS: TYLENOL PO SCH ×2 (05:36→09:48)
[2019-06-21 06:57] LABS: BASO# 0.01 X1000 (0.0-0.2); BASO% 0.2 % (0.0-0.8); EOS# 0.13 X1000 (0.0-0.7); EOS% 2.1 % (0.0-10.0); HEMATOCRIT 28.6 % (37.0-47.0); HEMOGLOBIN 9.1 g/dL (12.0-16.0); LYMPH# 1.81 X1000 (1.2-3.4); LYMPH% 29.5 % (20.5-51.1); MCH 28.8 PG (27-31); MCHC 31.8 g/dL (33-37); MCV 90.5 FL (81-99); MONO# 0.46 X1000 (0.11-0.59); MONO% 7.5 % (1.7-9.3); MPV 9.6 FL (7.4-10.4); NEUT# 3.72 X1000 (1.4-6.5); NEUT% 60.7 % (42.2-75.2); PLT 326 X1000 (130-400); RBC 3.16 XMIL (4.2-5.4); RDW 15.4 % (11.5-14.5); WBC 6.13 X1000 (4.8-10.8)
[2019-06-21] MEDS: HUMULIN R SUBQ SCH ×2 (07:00→11:21)
[2019-06-21 07:01] LABS: AGAP 14; ALBUMIN 3.1 g/dL (3.5-5.0); BUN 22 mg/dL (8-22); CALCIUM 8.7 mg/dL (8.8-10.2); CHLORIDE 103 mmol/L (98-107); COSMO 289; CREATININE 0.8 mg/dL (0.5-0.9); ESTIMATED GFR > 60; GLUCOSE 146 mg/dL (70-104); PHOSPHORUS 4.7 mg/dL (2.7-4.5); SODIUM 142 mmol/L (136-145); TCO2 25 mmol/L (25-35)
--- NOTE | 2019-06-21 09:04 | ORTHOPAEDICS PROGRESS NOTE ---
DATE: 06/21/2019 SUBJECTIVE: No acute events overnight. Patient has had some continued confusion since surgery. She has not worked with physical therapy yesterday. She is planning on being discharged to home with her daughter today. Hematocrit is 29. OBJECTIVE: Extremities: Examination of right lower extremity shows surgical incisions to be intact with no sign of infection. Thigh, calf soft and compressible. She is neurovascularly intact. ASSESSMENT: An 84-year-old female status post closed reduction, intramedullary nailing of right intertrochanteric femur fracture, postoperative day 5. PLAN: 1. Patient to be weightbearing as tolerated, right lower extremity. Physical therapy to mobilize with rolling walker. 2. Ice to the surgical site as needed for pain. 3. Aspirin for DVT prophylaxis. 4. Appreciate hospitalist recommendations. 5. Disposition per primary team. 6. The plan is for patient to be discharged home with her daughter with home health physical therapy. She will follow up with Dr. Call in 2 weeks for wound check and x-rays.
[2019-06-21] MEDS: GLUCOPHAGE PO SCH (09:48)
[2019-06-21] MEDS: NEURONTIN PO SCH (09:48)
[2019-06-21] MEDS: ASPIRIN EC PO SCH (09:48)
[2019-06-21] MEDS: ARICEPT PO SCH (09:48)
[2019-06-21] MEDS: FERROUS SULFATE PO SCH (09:49)
[2019-06-21] MEDS: NORVASC PO SCH (09:49)
[2019-06-21 11:22] VITALS: BP 140/46
--- NOTE | 2019-06-21 14:18 | DISCHARGE SUMMARY ---
ADMISSION DATE: 06/15/2019 DISCHARGE DATE: 06/21/2019 DIAGNOSES: 1. Right hip intertrochanteric fracture status post open reduction, internal fixation. 2. Diabetes mellitus type 2. 3. Dementia. 4. Symptomatic anemia status post transfusion. 5. Physical deconditioning. CONSULTANTS: Dr. Call, orthopedics. DIAGNOSTICS: 1. CT of the pelvis revealed intertrochanteric fracture of the right hip. 2. Right hip x-ray intertrochanteric fracture of the right hip that appears grossly unchanged compared to CT. 3. 06/17/2019 chest x-ray reveals stable chest. 4. CT of the head couple of new foci of low attenuation in the stem of the right midline indicating lacunar infarcts although could be chronic, late acute or subacute lacunar infarct cannot completely be excluded. Otherwise the brain is stable. 5. 06/16/2019 trochanteric fixation nail, right intertrochanteric hip fracture. HOSPITAL COURSE: Ms Cabello presented to emergency room with right hip pain after falling while trying to get out of bed. She was found to have a right intertrochanteric femur fracture for which she underwent nailing on 06/16/2019. She did well, was actually going to be discharged on the , while getting the patient ready to leave she stood up and passed out. Therefore her discharge was cancelled. She was transfused 1 unit of packed cells having a hemoglobin of 7.8, hematocrit 23.7, today hemoglobin is 9.1, hematocrit is 28.6. She is no longer symptomatic and thankfully she is ready for discharge. DISCHARGE PHYSICAL EXAMINATION: Cardiovascular: Regular rate and rhythm. S1 and S2 are appreciated. No murmurs, no gallops. She has no lower extremity edema. Calves are nontender bilateral with peripheral pulses palpable x4 extremities. Pulmonary: Breath sounds are clear with no increased work of breathing noted. Chest rises and falls symmetric with respiration. Gastrointestinal: Abdomen is soft, nontender, nondistended. Bowel sounds in all 4 quadrants. Neurologic: She is not oriented to person not oriented to place or time. DISCHARGE MEDICATIONS: 1. Oxycodone IR 5 mg 1 q.3 hours p.r.n. pain. 2. Metformin 1000 mg p.o. b.i.d. 3. Melatonin 5 mg p.o. at bedtime. 4. Milk of magnesia 30 mL p.o. daily p.r.n. 5. Lisinopril 10 mg p.o. at bedtime. 6. Gabapentin 100 mg p.o. b.i.d. 7. Ferrous sulfate 1 p.o. with breakfast. 8. Lovenox 30 mg subcu daily for 30 days. 9. Colace 200 mg p.o. at bedtime. 10. Aspirin 325 1 p.o. daily. 11. Norvasc 5 mg p.o. b.i.d. 12. Aricept 5 mg p.o. daily FOLLOWUP: 1. Dr. Call. Need to call to schedule an appointment in [address] Herrera. Appointment will need to be scheduled after discharge from rehab. Time frame will be per the facility physician's expertise. 3. She is being discharged to [facility] in stable condition with family members present. TIME SPENT: Greater than 30 minutes. Dictated by BHUPINDER Turpin for Harvey Mukherjee MD Addendum: Patient seen and examined by myself. Agree with BHUPINDER note. It reflects my assessment and plan. Patient is being discharged in stable condition. Will be seen by PCP in a week. cc: BHUPINDER Turpin MD [facility]
== END 2019-06-21 15:05 | disposition home health service (06) | DRG 481 ==
LOC: ED 05:09 → SUATTDRO 08:25 → 4N 08:25
PROVIDERS: ATTEND Internal Medicine